=== PATIENT | male | born 1955 | race Two or more races ===

== ENCOUNTER 2022-01-27 22:35 | Inpatient (IN) | payer OTHER ==
[~2022-01-27] VITALS: Ht 167.6 cm; Wt 72.6 kg
--- NOTE | 2022-01-27 23:22 | NUR ---
PACIENTE ALERTA Y ORIENTADO ACOMPANADO DE JAIN ESPOSA ESTA REFIERE QUE DESDE HOY EL PACIENTE PRESENTA FIEBRE, DEBILIDAD Y AZUCAR ARIS, REFIERE QUE PACIENTE SE ORINO Y EVACUO EN JAIN ROPA. SE LE RREALIZA EKG Y SE UBICA EN CRITICO ANGELA ORDEN MEDICA. PACIENTE CON BP BAJA Y FIEBRE.
--- NOTE | 2022-01-28 01:14 | NUR ---
SE RECIBE PTE MASCULINO DE 66 YRS ALERTA CONCIENTE Y TRANQUILO EN LA UNIDADA DE CRITICO DE LA SEEMA DE EMERGENCIA. PTE EVALUADO POR LA , BELLO QUIEN ORDENA TRANFERIRLO A ICU CONCETADO A MONITOR CARDIACO Y OXIMETRIA. PTE SE LE EJECUTA ORDEN MEDICA Y SE LE COMIENZA EN LEVOPHED 8 MG IN DW 250 A 10 ML HRS Y SE LE COMIENZA EN ANTIBIOTICOS ORDENADOS, SE LE REALIZA CHEST PORTABLE Y SE LLEVA A REALIZAR CTSCAN DE ABDOMEN. SE INTENTA VARIAS VESES DE PASAR FOLIE CATHETE POR MS.GARCIA Y MS GARZA LA CUAL NO SE PUDO. SE LE NOTIFICA A LA ,BELLO. SE MANTIENE BAJO OBSERVACION POR CAMBIOS EN JAIN CONDICION.
--- NOTE | 2022-01-28 01:26 | NUR ---
POR ORDEN MEDICA DEL LA SEAN, BELLO ,SE LE COMIENZA CON VENTURY MASK 40% A EL PACIENTE.SE MANTIENE BAJO OBSERVACION.
--- NOTE | 2022-01-28 07:12 | NUR ---
SE RECIBE PACIENTE MASCULINO ALERTA Y ORIENTADO EN LAS TIFFANIE ESFERAS EL CUAL SE OBSERVA CONECTADO A MONITOR CARDIACO, OXIMETRIA DE PUSLO, VENTURY MASK, CANALIZACIONES PATENTES LIPIAS Y SECAS, IVF 0.9NSS AT 125ML/HR, LEVOPHED 8MG/250ML AT 25ML/HR Y LANG CON ORINA COLOR AMARILLA SKY. SE REALIZA ESTIMADO DE SIGNOS VITALES LOS CUALES FUERO DOCUMENTADOS EN SISTEMA. PACIENTE PENDIENTE A CONSULTA CON DR OLMEDO. SE MANTIENE A PACIENTE EN OBSERVACION.
== END 2022-02-06 19:59 | disposition home or self-care (01) | DRG 689 ==
LOC: ER 22:35 → ICU-2 01-28 09:17 → ICU 01-28 14:27 → MEDJ 02-01 17:21 → SEC-K 02-01 17:33 → ICU 02-01 17:55 → MEDI 02-01 22:57
PROVIDERS: ADMIT Internal Medicine; ATTEND Internal Medicine
PROC: BW21ZZZ Computerized Tomography (CT Scan) of Abdomen and Pelvis (ICD-10-PCS; principal; 2022-01-28)
PROC: B24BZZZ Ultrasonography of Heart with Aorta (ICD-10-PCS; 2022-01-31)
PROC: 4A12X4Z Monitoring of Cardiac Electrical Activity, External Approach (ICD-10-PCS; 2022-02-02)
DX: N39.0 Urinary tract infection, site not specified (principal); R65.21 Severe sepsis with septic shock; A41.89 Other specified sepsis; E87.1 Hypo-osmolality and hyponatremia; N17.8 Other acute kidney failure; N12 Tubulo-interstitial nephritis, not specified as acute or chronic; E86.0 Dehydration; I48.91 Unspecified atrial fibrillation; I10 Essential (primary) hypertension; R31.9 Hematuria, unspecified; E11.65 Type 2 diabetes mellitus with hyperglycemia; Z79.4 Long term (current) use of insulin